=== PATIENT | male | born 1960 | race Caucasian/White ===

== ENCOUNTER 2017-04-14 04:41 | Emergency (ER) | payer MEDICARE, BC, OTHER ==
[~2017-04-14] VITALS: Ht 180.3 cm; Wt 111.0 kg
[2017-04-14] MEDS ORDERED: SODIUM CHLORIDE 0.9% 1,000 ML IV ONE (06:41)
[2017-04-14] MEDS ORDERED: ONDANSETRON HCL 4MG/2ML VIAL IV STA (06:41)
[2017-04-14] MEDS ORDERED: MORPHINE SULFATE 4 MG/ML CPJ (NOT FOR IM USE) IV STA (06:41)
[2017-04-14 07:04] LABS: BASOPHILS % 1.2 % (0.0-2.0); EOSINOPHILS % 1.3 % (0.0-5.0); HEMATOCRIT. 37.1 % (42.0-52.0); HEMOGLOBIN. 12.1 g/dL (14.0-18.0); LYMPHOCYTES % 19.5 % (20.0-50.0); MEAN CORPUSCULAR HEMOGLOBIN 26.9 pg (28.0-32.0); MEAN CORPUSCULAR VOLUME 82.5 fL (80.0-94.0); MEAN PLATELET VOLUME 8.9 fl (7.4-10.4); MONOCYTES % 6.8 % (2.0-8.0); NEUTROPHILS % 71.2 % (40.0-76.0); PLATELET 198 x1000/uL (130-400); RED CELL DISTRIBUTION WIDTH 16.3 % (11.6-14.6)
[2017-04-14 07:13] LABS: PROTHROMBIN TIME 10.2 sec
[2017-04-14 07:17] LABS: CARBON DIOXIDE 30 mEq/L (21-32); CHLORIDE 107 mEq/L (98-107)
[2017-04-14] MEDS ORDERED: IOHEXOL-300 100 ML BOTTLE ONE (09:31)
[2017-04-14] MEDS ORDERED: SODIUM CHLORIDE 0.9% 10ML VIAL ONE (09:31)
[2017-04-14] MEDS ORDERED: ONDANSETRON HCL 4MG/2ML VIAL IV ONE (10:00)
[2017-04-14] MEDS ORDERED: MORPHINE SULFATE 4 MG/ML CPJ (NOT FOR IM USE) IV ONE (10:00)
[2017-04-14 10:08] VITALS: BP 121/67
[2017-04-14 10:16] LABS: CLARITY URINE CLEAR (CLEAR); COLOR URINE YELLOW (YELLOW); GLUCOSE URINE NEGATIVE (NEGATIVE); KETONES URINE NEGATIVE (NEGATIVE); LEUKOCYTE ESTERASE URINE NEGATIVE (NEGATIVE); NITRITE URINE NEGATIVE (NEGATIVE); OCCULT BLOOD URINE NEGATIVE (NEGATIVE); PH URINE 5.5 (4.5-8.0); PROTEIN URINE NEGATIVE (NEGATIVE); SPECIFIC GRAVITY URINE 1.085 (1.005-1.030)
[2017-04-17] MEDS ORDERED: TEST200V16 IM (16:45)
[2017-04-17] MEDS ORDERED: ALBU2.5V13 NEB (16:45)
[2017-04-17] MEDS ORDERED: DIPH25CA83 PO (16:45)
[2017-04-17] MEDS ORDERED: LISI1TAB9 PO (16:45)
[2017-04-17] MEDS ORDERED: OXYC-23 PO (16:45)
[2017-04-17] MEDS ORDERED: PREG200C PO (16:45)
[2017-04-17] MEDS ORDERED: OXYC20TA56 PO (16:45)
[2017-04-17] MEDS ORDERED: ASPI-986 PO (16:45)
[2017-04-17] MEDS ORDERED: TADA5TAB PO (16:45)
[2017-04-17] MEDS ORDERED: INSNOV SUBCUT ×2 (16:45)
[2017-04-17] MEDS ORDERED: ATOR20TA65 PO (16:45)
[2017-04-17] MEDS ORDERED: OMEP20CA10 PO (16:45)
[2017-04-17] MEDS ORDERED: LIRA0.6P2 SUBCUT (16:45)
== END 2017-04-14 10:21 | disposition home or self-care (01) ==
LOC: ER 04:41
DX: R10.31 Right lower quadrant pain (principal); R11.2 Nausea with vomiting, unspecified; E11.65 Type 2 diabetes mellitus with hyperglycemia; I10 Essential (primary) hypertension; F17.200 Nicotine dependence, unspecified, uncomplicated; Z95.5 Presence of coronary angioplasty implant and graft; Z98.890 Other specified postprocedural states
CPT/HCPCS: 36415; 74177; 80053; 81003; 82962; 83690; 85025; 85610; 96361; 96374; 96375; 96376; 99285; A4216; J2270; J2405; J7030; Q9967